=== PATIENT | male | born 1950 | race Caucasian/White ===

== ENCOUNTER 2022-02-15 13:24 | Outpatient (CLI) | payer MEDICARE, BC, SELFPAY | END 2022-02-15 13:25 | disposition home or self-care (01) | PROVIDERS: PCP Family Medicine; Visit Provider Emergency Medicine Emergency Medical Services | DX: R53.1 Weakness (principal); M54.50 Low back pain, unspecified; R52 Pain, unspecified | CPT/HCPCS: A0425; A0427 ==

== ENCOUNTER 2022-06-25 06:38 | Outpatient (CLI) | payer MEDICARE, BC, SELFPAY | END 2022-06-25 06:39 | disposition home or self-care (01) | LOC: AMB 06-27 09:18 | PROVIDERS: PCP Family Medicine; Visit Provider Family Medicine | DX: R06.09 Other forms of dyspnea (principal); R53.1 Weakness; R53.83 Other fatigue | CPT/HCPCS: A0425; A0427 ==

== ENCOUNTER 2022-06-25 07:32 | Emergency (ER) | payer MEDICARE, BC, SELFPAY ==
[2022-06-25] VITALS (28 sets, daily range): BP systolic 133–227; BP diastolic 78–161; PULSE 59–91; RESP 15–25; TEMP 35.9–37; O2SAT 71–97; BMI 17.2
--- NOTE | 2022-06-25 07:57 | CRLHL7_ITS ---
For Patients: As a result of the Century Cures Act, medical imaging exams and procedure reports are released immediately into your electronic medical record. You may view this report before your referring provider. If you have questions, please contact your health care provider. INDICATION: Cough and dyspnea. COMPARISON: No prior relevant CTs TECHNIQUE: : CT examination of the chest was performed with the uneventful intravenous administration of 95 cc of Isovue 370 while thin axial sections were obtained from above the apices of the lungs to the lung bases. Please note that all CT scans at this facility use dose modulation, iterative reconstruction, and/or weight-based dosing when appropriate to reduce radiation dose to as low as reasonably achievable. FINDINGS: : HEART and MEDIASTINUM: The heart is mildly enlarged. There are atherosclerotic vascular calcifications. No pericardial effusion. PULMONARY ARTERIAL CIRCULATION: Enlarged pulmonary arteries consistent with pulmonary hypertension. There is no indication of acute pulmonary embolus AORTA: The bolus is not timed for the aorta. There are findings of a descending thoracic aortic dissection identified. The age of this is uncertain as the contrast opacification is quite limited. I doubt but cannot entirely exclude an ascending aortic component due to motion and phase of contrast injection. Follow-up imaging of the aorta as a study dedicated to the aorta is advised at a clinically appropriate time LUNGS: Severe emphysema. Bibasilar linear opacities likely atelectasis and scarring. No focal consolidation. Fluid identified within posterobasal bronchi bilaterally which is fairly characteristic of aspiration. There are also findings of tracheobronchial-megaly PLEURAL SPACES: There is no pleural effusion, pneumothorax or pleural based mass. VISUALIZED UPPER ABDOMEN: The limited visualized upper abdominal structures appear normal. OSSEOUS STRUCTURES: Age-appropriate appearance. No acute fracture or destructive process. TUBES and LINES: None. I discussed this case with Dr. Gregorio Ge at 12:20 p.m. on June 25, 2020 IMPRESSION: 1. There is no finding of acute pulmonary embolus. There are findings of pulmonary hypertension. 2. The bolus is not timed for the aorta. However, there are findings of a descending thoracic aortic dissection without obvious ascending component. The age of this is uncertain. I specifically recommend follow-up evaluation of the aorta to further characterize the extent and the age of the dissection 3. Severe emphysema. Bibasilar atelectasis and scarring. Fluid within lower lobe bronchi likely related to aspiration. No focal consolidation Please note that all CT scans at this facility use dose modulation, iterative reconstruction, and/or weight-based dosing when appropriate to reduce radiation dose to as low as reasonably achievable. Dictated by Balwinder Bolton MD @ 06/25/2022 12:24:50 PM (Electronically Signed)
--- NOTE | 2022-06-25 07:59 | CRLHL7_ITS ---
For Patients: As a result of the Cures Act, medical imaging exams and procedure reports are released immediately into your electronic medical record. You may view this report before your referring provider. If you have questions, please contact your health care provider. INDICATION: COPD. TECHNIQUE: AP portable semi-upright chest. FINDINGS: Hyperinflation. Attenuation of the pulmonary vascularity. Emphysematous type change. Slight cardiac enlargement without overt failure. No pneumothorax. Skeletal demineralization. Presumed chronic deformity of the left humeral head/neck likely related to an old fracture deformity. Old left-sided rib fractures. IMPRESSION: Emphysematous type change. No acute cardiopulmonary process identified. Old posttraumatic change left hemithorax and left shoulder. Dictated by Kendrick Andrews MD @ 06/25/2022 8:45:26 AM (Electronically Signed)
--- NOTE | 2022-06-25 08:01 | ED_ITS ---
HPI - General Adult General Time Seen by Provider: 08:02 Date Seen: 06/25/22 Chief complaint: Shortness of Breath/Dyspnea Stated complaint: breathing difficulty Time Seen by Provider: 06/25/22 07:46 Source: patient History of Present Illness HPI narrative: Patient is a 72-year-old white male who lives near [place] with his . He has significant COPD, has oxygen at home, but has had several day history of wor sening breathing cough weakness. He has been unable to get out of bed at times. He is afraid that his can not care for him anymore. He has no some change in sputum color. He does feel short of breath, and his O2 sat on presentation was 86%. He reports he has lost weight gradually over the last couple years. He denies chest pain, denies fevers, chills, has had no rigors. No leg swelling or edema. he also reports that he has had frequent falls, and that has been for some time but worsening lately. He feels he is unsteady on his feet, weak, and unable to get out of bed at times as mention. He feels more short of breath than normal. His past history is significant for methadone drawl, elbow fracture, COPD, frequent falls. He sees Dr. Constantine de [facility] for primary care. Related Data Allergies Allergy/AdvReac Type Severity Reaction Status Date / Time No Known Drug Allergies Allergy Verified 06/25/22 07:41 Review of Systems Status of ROS: Reports: 10 or more systems reviewed and unremarkable except as noted in History and below [facility] Social History Smoking Status: Former smoker What tobacco products do you use: cigarettes Years smoked: 40 Second hand tobacco smoke exposure: No How often do you have a drink containing alcohol: never How often do you have six or more drinks on one occasion: Never AUDIT-C Alcohol total score: 0 Non-prescribed substance use: denies use service: No Exam Narrative: Exam Narrative: Objective: The patient is a cachectic elderly male, seems older than his stated age HEENT shows dry mucous membranes, questionable scleral icterus minimal Neck is supple Chest wheezes noted throughout the lung mcdaniel, coarse respiratory sounds consistent with airway mucus Abdomen benign soft Heart rate and rhythm regular 2/6 systolic murmur Abdomen benign Extremities without edema Muscle mass is very diminished patient is cachectic, he does report that he still been eating Peripheral perfusion is adequate Skin warm and dry Const: Vital Signs, click to edit/add: Vital Signs - 24 hr 06/25/22 07:41 06/25/22 08:00 06/25/22 08:06 Temperature 98.6 F Pulse Rate Pulse Rate [Pulse Oximeter] 68 74 Respiratory Rate 24 20 Blood Pressure Blood Pressure [Ri ght Upper Arm] 171/101 H 170/106 H Pulse Oximetry 86 L 94 95 Oxygen Delivery Me thod Room Air Nasal Cannula 06/25/22 09:34 06/25/22 09:30 06/25/22 09:27 Temperature Pulse Rate Pulse Rate [Pulse Oximeter] 87 89 91 Respiratory Rate 22 20 16 Blood Pressure Blood Pressure [Ri ght Upper Arm] 215/138 H 215/143 H 219/161 H Pulse Oximetry 95 95 96 Oxygen Delivery Me thod Nasal Cannula Nasal Cannula Nasal Cannula 06/25/22 09:00 06/25/22 08:30 06/25/22 10:00 Temperature Pulse Rate Pulse Rate [Pulse Oximeter] 77 67 85 Respiratory Rate 17 Blood Pressure Blood Pressure [Ri ght Upper Arm] 173/104 H 175/109 H 219/137 H Pulse Oximetry 97 96 96 Oxygen Delivery Me thod Nasal Cannula Nasal Cannula Room Air 06/25/22 10:30 06/25/22 13:21 06/25/22 13:55 Temperature 96.6 F L Pulse Rate 68 Pulse Rate [Pulse Oximeter] 85 60 Respiratory Rate 20 16 Blood Pressure Blood Pressure [Ri ght Upper Arm] 227/134 H 156/95 H Pulse Oximetry 96 96 95 Oxygen Delivery Me thod Nasal Cannula Nasal Cannula 06/25/22 13:55 06/25/22 11:30 06/25/22 13:30 Temperature Pulse Rate 68 Pulse Rate [Pulse Oximeter] 59 L 89 Respiratory Rate 16 22 Blood Pressure Blood Pressure [Ri ght Upper Arm] 139/84 210/131 H Pulse Oximetry 95 94 95 Oxygen Delivery Me thod Nasal Cannula Room Air 06/25/22 13:33 06/25/22 13:45 06/25/22 13:47 Temperature Pulse Rate 68 68 67 Pulse Rate [Pulse Oximeter] Respiratory Rate Blood Pressure 199/116 H 200/113 H Blood Pressure [Ri ght Upper Arm] Pulse Oximetry 95 95 95 Oxygen Delivery Me thod 06/25/22 13:54 06/25/22 13:57 06/25/22 14:00 Temperature Pulse Rate 63 60 60 Pulse Rate [Pulse Oximeter] Respiratory Rate Blood Pressure 182/99 H 156/94 H Blood Pressure [Ri ght Upper Arm] Pulse Oximetry 96 95 95 Oxygen Delivery Me thod 06/25/22 14:02 06/25/22 14:07 06/25/22 12:00 Temperature Pulse Rate 61 60 Pulse Rate [Pulse Oximeter] 89 Respiratory Rate 16 Blood Pressure 139/84 133/78 Blood Pressure [Ri ght Upper Arm] 218/132 H Pulse Oximetry 95 95 94 Oxygen Delivery Me thod Nasal Cannula 06/25/22 12:30 06/25/22 12:42 06/25/22 12:50 Temperature Pulse Rate Pulse Rate [Pulse Oximeter] 87 81 76 Respiratory Rate 15 24 20 Blood Pressure Blood Pressure [Ri ght Upper Arm] 216/132 H 205/131 H 199/122 H Pulse Oximetry 96 94 96 Oxygen Delivery Me thod Nasal Cannula Nasal Cannula Nasal Cannula 06/25/22 13:00 06/25/22 13:15 Temperature Pulse Rate Pulse Rate [Pulse Oximeter] 71 71 Respiratory Rate 19 25 H Blood Pressure Blood Pressure [Ri ght Upper Arm] 207/124 H 208/128 H Pulse Oximetry 96 71 L Oxygen Delivery Me thod Nasal Cannula Course Vital Signs Vital signs: Initial Vital Signs Temperature 98.6 F 06/25/22 07:41 Temperature Source Temporal Artery Scan 06/25/22 07:41 Pulse Rate 68 06/25/22 07:41 Pulse Rhythm 06/25/22 07:41 Respiratory Rate 24 06/25/22 07:41 Blood Pressure 171/101 H 06/25/22 07:41 Blood Pressure Mean 124 06/25/22 07:41 Pulse Oximetry 86 L 06/25/22 07:41 Oxygen Delivery Method 06/25/22 07:41 Vital Signs Temperature 98.6 F 06/25/22 07:41 Pulse Rate 68 06/25/22 07:41 Respiratory Rate 24 06/25/22 07:41 Blood Pressure 171/101 H 06/25/22 07:41 Pulse Oximetry 86 L 06/25/22 07:41 Oxygen Delivery Method 06/25/22 07:41 Temperature 96.6 F L 06/25/22 13:55 Pulse Rate 60 06/25/22 14:07 Respiratory Rate 16 06/25/22 13:55 Blood Pressure 133/78 06/25/22 14:07 Pulse Oximetry 95 06/25/22 14:07 Oxygen Delivery Method 06/25/22 13:55 Medical Decision Making MDM Narrative Medical decision making narrative: This 72-year-old white male with COPD has a significant COPD exacerbation, he will need IV steroids IV antibiotics nebulization. Will check for COVID/flu/RSV. The patient at this point is weak and unable to really care for himself at home he will need admission and perhaps more advanced care placement, as well as treatment for his COPD given his hypoxia. Will check chest x-ray CT scan of his chest, blood cultures, lab studies, IV fluid, IV steroids and IV an tibiotic. Addendum: Chest x-ray by my review shows hyperinflation, no obvious infiltrate. CT scan of the chest is pending. Patient had transient elevation in his blood pressure after antibiotic and got some Ativan seems to be little bit improved his O2 sat on presentation was 86%. He has been 6 extremely weak. Likely needs more advanced placement. As he feels his can not take care of him at home or himself. His troponin is intermediate 0.05 white count is 8300 hemoglobin 14.3, neutrophil count is 80%, coags are unremarkable, blood gas venous on O2 shows a pH is 7.4 pCO2 41 PO2 63 bicarb 26. ER panel is unremarkable in the low normal potassium 3.5 glucose 124 renal function is normal. COVID influenza RSV negative. Patient appears to have a COPD exacerbation causing weakness, hypoxia, he is cachectic, and may need more advanced placement. Needs IV antibiotics IV steroids observation, PT assessment, social service assessment. Will talk to inpatient hospitalist. Addendum: I was card tape converter operator with a cardiothoracic surgeon as well as a vascular surgeon at [facility] as well as the ED doctor. They have accepted the patient because he has a dissection as a must take type patient, and have recommended labetalol and blood pressure and heart rate control, would also be seen in the ED and they have accepted Dr. Benitez. The patient will be transferred via ground ambulance. Transfer sheet is completed. Addendum: We continue to titrate the patient's blood pressure down with IV labetalol, it has been fairly resistant, has been difficult to get below the 190 patrice, will continue to titrate up medication watches pulse and blood pressure. He has been accepted by Dr. Benitez to they [facility], with vascular surgery and cardiothoracic surgery consultation. The patient's was in agreement with the plan as was the patient. He be transferred via ground ambulance. Addendum: The IV labetalol has been titrated up and it is having much affect and patients now down the 130/80 range blood pressure. If it is not responding we will add neck heart cardio pain IV as were running low on labetalol. The patient has been accepted by Dr. Benitez in the ED as mention, and transfer it has been arranged. Transfer sheets completed. Patient family in agreement with the plan Lab Data Labs: Lab Results 06/25/22 06/25/22 06/25/22 Range/Units 07:58 08:30 08:30 WBC 8.30 (4.50-11.00) K/uL RBC 4.60 (4.30-5.90) m/uL Hgb 14.3 (13.5-17.5) gm/dL Hct 43.4 (37.0-53.0) % MCV 94 (80-100) fL MCH 31 (26-34) pg MCHC 33 (32-36) gm/dL RDW Coeff of Kalia 13.3 (11.5-15.5) % Plt Count 284 (140-440) K/uL Neut % (Auto) 80.0 H (42.0-72.0) % Lymph % (Auto) 9.8 L (20-44) % [place] % (Auto) 9.0 (0.0-11.0) % Eos % (Auto) 0.6 (0.0-7.0) % Baso % (Auto) 0.5 (0.0-3.0) % Neut # (Auto) 6.60 (1.7-7.0) K/uL Lymph # (Auto) 0.80 L (0.90-2.90) K/uL [place] # (Auto) 0.70 (0.00-0.90) K/UL Eos # (Auto) 0.05 (0.00-0.50) K/uL Baso # (Auto) 0.04 (0.00-0.30) K/uL Abs Immat Gran (auto) 0.01 (0.00-0.30) K/uL Imm/Tot Granulo (auto) 0.1 % INR 1.04 (0.91-1.10) APTT 32 (23-33) Seconds VBG pH (7.32-7.43) VBG pCO2 (40-50) mmHG VBG pO2 (25-47) mmHG VBG HCO3 (21-28) mmol/L Sodium (135-149) mmol/L Potassium (3.6-5.1) mmol/L Chloride (96-114) mmol/L Carbon Dioxide (20-32) mmol/L BUN (7-30) mg/dL Creatinine (0.5-1.5) mg/dL Estimated Creat Clear Estimated GFR ml/min Glucose (60-115) mg/dL Lactate (0.5-1.9) mmol/L Calcium (8.4-10.6) mg/dL Total Bilirubin (0.1-1.5) mg/dL Direct Bilirubin (0.0-0.5) mg/dL AST (12-35) U/L ALT (4-50) U/L Alkaline Phosphatase (40-150) U/L Troponin I (0.01-0.04) ng/mL C-Reactive Protein (0.5-1.0) mg/dL Total Protein (6.0-8.3) g/dL Albumin (3.3-5.0) g/dL Amylase (18-89) U/L SARS-CoV-2 (PCR) Negative SARS-CoV-2 (Negative) Influenza Type A (PCR) Negative PCR FLU A (Negative) Influenza Type B (PCR) Negative PCR FLU B (Negative) RSV (PCR) Negative PCR RSV (Negative) 06/25/22 06/25/22 Range/Units 08:30 08:30 WBC (4.50-11.00) K/uL RBC (4.30-5.90) m/uL Hgb (13.5-17.5) gm/dL Hct (37.0-53.0) % MCV (80-100) fL MCH (26-34) pg MCHC (32-36) gm/dL RDW Coeff of Kalia (11.5-15.5) % Plt Count (140-440) K/uL Neut % (Auto) (42.0-72.0) % Lymph % (Auto) (20-44) % [place] % (Auto) (0.0-11.0) % Eos % (Auto) (0.0-7.0) % Baso % (Auto) (0.0-3.0) % Neut # (Auto) (1.7-7.0) K/uL Lymph # (Auto) (0.90-2.90) K/uL [place] # (Auto) (0.00-0.90) K/UL Eos # (Auto) (0.00-0.50) K/uL Baso # (Auto) (0.00-0.30) K/uL Abs Immat Gran (auto) (0.00-0.30) K/uL Imm/Tot Granulo (auto) % INR (0.91-1.10) APTT (23-33) Seconds VBG pH 7.403 (7.32-7.43) VBG pCO2 41 (40-50) mmHG VBG pO2 63.0 H (25-47) mmHG VBG HCO3 26 (21-28) mmol/L Sodium 141 (135-149) mmol/L Potassium 3.5 L (3.6-5.1) mmol/L Chloride 108 (96-114) mmol/L Carbon Dioxide 26 (20-32) mmol/L BUN 20 (7-30) mg/dL Creatinine 0.5 (0.5-1.5) mg/dL Estimated Creat Clear 42.21 Estimated GFR 108 ml/min Glucose 124 H (60-115) mg/dL Lactate 1.1 (0.5-1.9) mmol/L Calcium 9.0 (8.4-10.6) mg/dL Total Bilirubin 0.6 (0.1-1.5) mg/dL Direct Bilirubin 0.1 (0.0-0.5) mg/dL AST 27 (12-35) U/L ALT 17 (4-50) U/L Alkaline Phosphatase 53 (40-150) U/L Troponin I 0.05 H (0.01-0.04) ng/mL C-Reactive Protein 0.6 (0.5-1.0) mg/dL Total Protein 6.7 (6.0-8.3) g/dL Albumin 4.0 (3.3-5.0) g/dL Amylase 66 (18-89) U/L SARS-CoV-2 (PCR) (Negative) Influenza Type A (PCR) (Negative) Influenza Type B (PCR) (Negative) RSV (PCR) (Negative) Discharge Plan Discharge Clinical Impression: Hypoxia, Acute exacerbation of chronic obstructive pulmonary disease, Aortic dissection Patient Disposition: Xfer Other Discharge Location: [facility] Condition: Stable Stand Alone Forms: MyHealth Info Instructions
[2022-06-25] MEDS: 0.9 % SODIUM CHLORIDE 500 ML 500 ML IV (08:24)
[2022-06-25] MEDS: METHYLPREDNISOLONE SOD SUCC 62.5 MG/ML (125) 125 MG IVP (08:28)
[2022-06-25] MEDS: IPRAT-ALBUT 0.5-2.5 MG/3 ML NEB 1 NEB IH (08:32)
[2022-06-25 08:38] LABS: HCO3 VBG 26 mmol/L (21-28); Lactate* 1.1 mmol/L (0.5-1.9); PCO2 VBG 41 mmHG (40-50); pH VBG 7.403 (7.32-7.43)
[2022-06-25 08:42] LABS: Basophils Absolute Auto 0.04 K/uL (0.00-0.30); Basophils Percent Auto 0.5 % (0.0-3.0); Eosinophils Absolute Auto 0.05 K/uL (0.00-0.50); Eosinophils Percent Auto 0.6 % (0.0-7.0); Hematocrit 43.4 % (37.0-53.0); Hemoglobin* 14.3 gm/dL (13.5-17.5); Immature Granulocytes Abs Auto 0.01 K/uL (0.00-0.30); Immature Granulocytes Pct Auto 0.1 %; Lymphocytes Percent Auto 9.8 % (20-44); Mean Corpuscular HGB Conc 33 gm/dL (32-36); Mean Corpuscular Hemoglobin 31 pg (26-34); Mean Corpuscular Volume 94 fL (80-100); Platelet Count* 284 K/uL (140-440); RDW Coefficient of Variation % 13.3 % (11.5-15.5)
[2022-06-25 08:44] LABS: Slide Review Reflex No
[2022-06-25] MEDS: AZITHROMYCIN 100 MG/ML inj 500 MG IVPB (08:48)
[2022-06-25 08:54] LABS: Chloride* 108 mmol/L (96-114); Sodium* 141 mmol/L (135-149)
[2022-06-25 08:55] LABS: Potassium* 3.5 mmol/L (3.6-5.1)
[2022-06-25 08:56] LABS: Amylase* 66 U/L (18-89); INR 1.04 (0.91-1.10); Prothrombin Time 14.2 Seconds
[2022-06-25 08:57] LABS: Alkaline Phosphatase* 53 U/L (40-150); Aspartate Amino Transferase* 27 U/L (12-35); Bilirubin Direct* 0.1 mg/dL (0.0-0.5); Bilirubin Total* 0.6 mg/dL (0.1-1.5); Blood Urea Nitrogen* 20 mg/dL (7-30); Carbon Dioxide* 26 mmol/L (20-32); Creatinine* 0.5 mg/dL (0.5-1.5); Est. Creatinine Clearance* 42.21; Estimated Glomerular Filt Rate 108 ml/min; Glucose* 124 mg/dL (60-115); Partial Thromboplastin Time* 32 Seconds (23-33); Total Protein* 6.7 g/dL (6.0-8.3)
[2022-06-25 08:58] LABS: Alanine Aminotransferase* 17 U/L (4-50)
[2022-06-25 09:00] LABS: C Reactive Protein* 0.6 mg/dL (0.5-1.0)
[2022-06-25 09:04] LABS: PCR FLU A Negative PCR FLU A (Negative); PCR FLU B Negative PCR FLU B (Negative); PCR RSV Negative PCR RSV (Negative)
[2022-06-25 09:09] LABS: Troponin I* 0.05 ng/mL (0.01-0.04)
[2022-06-25 09:13] LABS: SARS PCR* Negative SARS-CoV-2 (Negative)
[2022-06-25] MEDS: LORazepam 2 MG/ML inj 0.5 MG IVP (09:25)
--- NOTE | 2022-06-25 09:28 | ED.NURSE ---
is sl nauseated and diaphoretic. is getting a azithromycin and complains of feeling some discomfort in the administering left arm. ativan 0.5 mg was given to help alleviate symptoms. bp was noted to be elevated up to 219/161, recheck 215/143. will continue to observe..
--- NOTE | 2022-06-25 09:39 | ED.NURSE ---
dr harley informed of current status. is aware of bp and diaphoresis.
--- NOTE | 2022-06-25 11:14 | ED.NURSE ---
called in and she will be in later as she has a well repair man coming to do repairs. was informed on status and that he will be staying in the hospital. is less diaphoretic and is more comfortable.
--- NOTE | 2022-06-25 11:45 | ED.NURSE ---
was levy to stand at bs and voided 420 ml. less diaphoretic now.
--- NOTE | 2022-06-25 12:30 | ED.NURSE ---
dr harley wants to hold off on admission due to having a aortic dissection. this is not clear if it is new or chronic finding. will lower bp.
[2022-06-25] MEDS: METOPROLOL TARTRATE 1 MG/ML inj 5 MG IVP (12:36)
[2022-06-25] MEDS: LABETALOL HCL 5 MG/ML inj IVP (12:46)
--- NOTE | 2022-06-25 13:05 | ED.NURSE ---
Pt assisted to stand at bedside and void into urinal. Voids ~420mLs dark yellow urine.
--- NOTE | 2022-06-25 13:25 | ED.NURSE ---
increased labetolol drip to 3 mg/mn. is in room. dr harley aware. pharmacy informed.
--- NOTE | 2022-06-25 13:58 | ED.NURSE ---
increased the labetalol to 240cc which 4 mg/min. BP 156/94-60. [facility] patient is sleeping in the bed. called EMS for transfer.
--- NOTE | 2022-06-25 14:15 | ED.NURSE ---
given report to EMS as here to transfer patient to [facility] via ground. signed the consent for transfer signed by . given the shirt to take home.
--- NOTE | 2022-06-25 14:34 | ED.NURSE ---
report was called to vanesa duron rn at [phone].
== END 2022-06-25 14:30 | disposition other institution (70) ==
PROVIDERS: Emergency Provider Family Medicine; PCP Family Medicine
DX: J44.1 Chronic obstructive pulmonary disease with (acute) exacerbation (principal); I71.00 Dissection of unspecified site of aorta; R09.02 Hypoxemia
CPT/HCPCS: 36415; 71045; 71260; 80048; 80076; 82150; 82803; 83605; 84484; 85025; 85610; 85730; 86140; 87040; 87502; 87634; 87635; 93005; 94640; 94761; 96365; 96375; 99285; J0456; J2060; J2930; J7050; J7120; Q9967

== ENCOUNTER 2022-06-25 14:07 | Outpatient (CLI) | payer MEDICARE, BC, SELFPAY | END 2022-06-25 14:08 | disposition home or self-care (01) | LOC: AMB 07-04 08:28 | PROVIDERS: PCP Family Medicine; Visit Provider Family Medicine | DX: J44.1 Chronic obstructive pulmonary disease with (acute) exacerbation (principal) | CPT/HCPCS: A0425; A0426; A0427 ==

== ENCOUNTER 2022-08-07 14:26 | Outpatient (CLI) | payer MEDICARE, BC, SELFPAY | END 2022-08-07 14:27 | disposition home or self-care (01) | LOC: AMB 08-11 10:28 | PROVIDERS: PCP Family Medicine; Visit Provider Family Medicine | DX: R10.9 Unspecified abdominal pain (principal) | CPT/HCPCS: A0425; A0427 ==